=== PATIENT | female | born 1995 | race Caucasian/White ===

== ENCOUNTER 2017-04-03 15:19 | Emergency (ER) | payer OTHER ==
[2017-04-03 15:24] VITALS: RESP 16
--- NOTE | 2017-04-03 16:01 | ED ---
General Adult HPI - General Chief complaint: Vaginal Bleeding Stated complaint: 16 wks preg. Bleeding Time Seen by Provider: 04/03/17 15:52 Source: patient, RN notes reviewed, old records reviewed Mode of arrival: ambulatory Limitations: no limitations - History of Present Illness Initial comments: This is a 21-year-old female ER for evaluation. This patient presents for evaluation of vaginal bleeding and vaginal cramping. Patient is about 16 weeks . Patient is a . Patient's is by dates. Patient denies any other complaints. No nausea vomiting. Bowel or bladder issues. - Related Data Home Medications Medication Instructions Recorded Confirmed Pnv,Calcium 72/Iron/Folic Acid 1 tab PO DAILY 04/03/17 04/03/17 [ Plus Tablet] Allergies Allergy/AdvReac Type Severity Reaction Status Date / Time No Known Allergies Allergy Verified 04/03/17 16:12 Review of Systems ROS Statement: Those systems with pertinent positive or pertinent negative responses have been documented in the HPI. ROS Other: All systems not noted in ROS Statement are negative. Past Medical History Past Medical History: No Reported History History of Any Multi-Drug Resistant Organisms: None Reported Past Surgical History: No Surgical Hx Reported Past Psychological History: No Psychological Hx Reported Smoking Status: Current every day smoker Past Alcohol Use History: None Reported Past Drug Use History: None Reported General Exam Limitations: no limitations General appearance: alert, in no apparent distress Head exam: Present: atraumatic, normocephalic, normal inspection Eye exam: Present: normal appearance, PERRL, EOMI. Absent: scleral icterus, conjunctival injection, periorbital swelling ENT exam: Present: normal exam, mucous membranes moist Neck exam: Present: normal inspection. Absent: tenderness, meningismus, lymphadenopathy Respiratory exam: Present: normal lung sounds bilaterally. Absent: respiratory distress, wheezes, rales, rhonchi, stridor Cardiovascular Exam: Present: regular rate, normal rhythm, normal heart sounds. Absent: systolic murmur, diastolic murmur, rubs, gallop, clicks GI/Abdominal exam: Present: soft, normal bowel sounds. Absent: distended, tenderness, guarding, rebound, rigid Extremities exam: Present: normal inspection, full ROM, normal capillary refill. Absent: tenderness, pedal edema, joint swelling, calf tenderness Back exam: Present: normal inspection Neurological exam: Present: alert, oriented X3, CN II-XII intact Psychiatric exam: Present: normal affect, normal mood Skin exam: Present: warm, dry, intact, normal color. Absent: rash Course Vital Signs 04/03/17 04/03/17 15:22 17:44 Temperature 97.5 F L 98.9 F Pulse Rate 86 72 Respiratory 16 16 Rate Blood Pressure 121/72 119/61 O2 Sat by Pulse 98 98 Oximetry Medical Decision Making - Medical Decision Making 21 female here for evaluation of vaginal bleeding,., Patient negative ultrasound negative patient can be discharged - Lab Data Lab Results 04/03/17 04/03/17 04/03/17 Range/Units 16:20 16:20 16:20 Urine Color Yellow Urine Appearance Clear (Clear) Urine pH 5.5 (5.0-8.0) Ur Specific [place] 1.014 (1.001-1.035) Urine Protein Trace H (Negative) Urine Glucose (UA) Negative (Negative) Urine Ketones Negative (Negative) Urine Blood Large H (Negative) Urine Nitrite Negative (Negative) Urine Bilirubin Negative (Negative) Urine Urobilinogen <2.0 (<2.0) mg/dL Ur Leukocyte Esterase Trace H (Negative) Urine RBC >182 H (0-5) /hpf Urine WBC 50 H (0-5) /hpf Ur Squamous Epith Cells 1 (0-4) /hpf Urine Mucus Rare H (None) /hpf Urine HCG, Qual Not Detected (Not Detectd) Blood Type A Positive Blood Type Recheck No - Radiology Data Radiology results: report reviewed (Ultrasound is negative for acute disease), image reviewed Disposition Clinical Impression: Menorrhagia, Vaginal bleeding Disposition: HOME SELF-CARE Condition: Good Instructions: Menstruation (ED) Referrals: None,Stated [Primary Care Provider] - 1-2 days
[2017-04-03 16:39] LABS: Appearance,Urine Clear (Clear); Bilirubin,Urine Negative (Negative); Glucose,Urine (UA) Negative (Negative); Ketones,Urine Negative (Negative); Leukocyte Esterase,Urine Trace (Negative); Mucus,Urine Rare /hpf; Nitrite,Urine Negative (Negative); PH, Urine 5.5 (5.0-8.0); Particle Count 4358; Protein,Urine Trace (Negative); RBC,Urine >182 /hpf (0-5); Specific Gravity,Urine 1.014 (1.001-1.035); Squamous Epithelial Cell,Urine 1 /hpf (0-4); UA Billing (MACRO vs. MICRO) MICRO; Urobilinogen,Urine <2.0 mg/dL (<2.0); WBC,Urine 50 /hpf (0-5)
--- NOTE | 2017-04-03 17:21 | US ---
EXAMINATION TYPE: US OB <=14 wks transvag DATE OF EXAM: 04/03/2017 COMPARISON: NONE CLINICAL HISTORY: pain. Bleeding and cramping x 2 days EXAM PERFORMED: Transvaginal (TV) and Transabdominal (TA) EXAM MEASUREMENTS: GESTATIONAL AGE / DATING Physician Established: Not established yet Dates by LMP: Unknown Dates by First Scan: This is 1st scan Dates by Current Scan for: No IUP seen at this time MATERNAL ANATOMY Uterus: 7.5 x 4.4 x 4.7cm, anteverted Right Ovary: 2.9 x 1.8 x 2.3cm Left Ovary: 2.7 x 1.7 x 2.7cm, 1.1cm cystic area Post CDS / Adnexa: small amount of free fluid seen in right adnexa and posterior cul de sac Presence of free fluid: yes Presence of corpus luteal cyst: not seen at this time Presence of subchorionic bleed: no GESTATION / SURVEY IUP: No IUP seen at this time Date of LMP: Unknown Beta HcG (if available): Not available at this time NO IUP seen at this time IMPRESSION: No evidence of a gestational sac. Minimal free fluid. Small left ovarian cyst. Normal uterus and endo metrium.
[2017-04-03 17:45] VITALS: BP 119/61; PULSE 72; TEMP 98.9
== END 2017-04-03 18:13 | disposition home or self-care (01) ==
LOC: EC 15:19
DX: N92.0 Excessive and frequent menstruation with regular cycle (principal); F17.200 Nicotine dependence, unspecified, uncomplicated; Z79.899 Other long term (current) drug therapy
CPT/HCPCS: 76801; 76817; 81001; 81025; 86900; 86901; 87086; 87491; 87591; 99284

== ENCOUNTER 2017-05-10 14:57 | Emergency (ER) | payer SELFPAY ==
[2017-05-10 15:42] LABS: Basophils % (A) 0 %; CH 30.8; CHCM 33.7; Eosinophils # (A) 0.1 k/uL (0-0.7); Eosinophils % (A) 1 %; HDW 2.14; HGB 12.4 gm/dL (11.4-16.0); Luc # (Auto) 0.11; Luc % (Auto) 1; Lymphocytes % (A) 25 %; MCH 30.8 pg (25.0-35.0); MCHC 33.6 g/dL (31.0-37.0); MCV 91.7 fL (80.0-100.0); Mean Platelet Volume 9.6; Monocytes # (A) 0.5 k/uL (0-1.0); Monocytes % (A) 6 %; Neutrophils # (A) 5.4 k/uL (1.3-7.7); Neutrophils % (A) 67 %; RBC 4.03 m/uL (3.80-5.40); RDW 13.9 % (11.5-15.5); WBC (Perox) 8.22
[2017-05-10 16:00] LABS: HCG,Qualitative Serum Detected
[2017-05-10 16:07] LABS: Anion Gap 12 mmol/L; Blood Urea Nitrogen 13 mg/dL (7-17); Calcium 9.6 mg/dL (8.4-10.2); Carbon Dioxide 22 mmol/L (22-30); Chloride 107 mmol/L (98-107); Glucose 89 mg/dL (74-99); Non-African American GFR(MDRD) >60 (>60 ml/min/1.73 sqM); Potassium 3.9 mmol/L (3.5-5.1); Sodium 141 mmol/L (137-145)
--- NOTE | 2017-05-10 16:22 | ED ---
General Adult HPI - General Chief complaint: Vaginal Bleeding Stated complaint: vaginal bleeding/cramping-6wks preg Time Seen by Provider: 05/10/17 15:02 Source: patient Mode of arrival: ambulatory Limitations: no limitations - History of Present Illness Initial comments: Patient is a female who presents to the ED via private vehicle for evaluation of dark vaginal spotting and cramping. Patient states that she cannot she was in March however she had a miscarriage on April 03. She states she was evaluated by her OB who stated that she had had a completed miscarriage and required no further follow-up. Patient states that she did not have a menstrual cycle in early May and on Sunday she took a test which was positive. She states that today she was at work where she is on her feet all day she began experiencing suprapubic cramping upon using the restroom she noted some dark vaginal spotting. Patient states she did not have any vaginal bleeding and her first and only had bleeding during her miscarriage in her previous which made her very concerned. Patient denies any fevers, chills, vomiting. She does report that she is been persistently nauseated but this is typical with her previous pregnancies. Reports she's been making sure to eat and drink plenty despite the nausea. Eyes any chest pain or shortness of breath. Patient denies any vaginal discharge or concern for sexually transmitted infections. She states that last month when she was evaluated by gynecology she was tested for all sexually transmitted infections and was negative, dietitian she states that she is in a monogamous relationship and has no concern for exposures. Patient is unsure what her blood type is, but does not believe she received Rhogam in previous pregnancies or miscarriages. Patient denies any dysuria, urinary frequency, foul odor of urine or hematuria. - Related Data Home Medications Medication Instructions Recorded Confirmed Pnv,Calcium 72/Iron/Folic Acid 1 tab PO DAILY 04/03/17 05/10/17 [ Plus Tablet] Allergies Allergy/AdvReac Type Severity Reaction Status Date / Time No Known Allergies Allergy Verified 05/10/17 15:42 Review of Systems ROS Statement: Those systems with pertinent positive or pertinent negative responses have been documented in the HPI. ROS Other: All systems not noted in ROS Statement are negative. Constitutional: Denies: fever, chills Eyes: Denies: vision change Respiratory: Denies: cough, dyspnea Cardiovascular: Denies: chest pain, palpitations Endocrine: Denies: fatigue Gastrointestinal: Reports: nausea. Denies: abdominal pain, vomiting, diarrhea, constipation Genitourinary: Reports: abnormal menses. Denies: urgency, dysuria, frequency, hematuria, dyspareunia (Last sexually active last week) Musculoskeletal: Denies: back pain Skin: Denies: rash, lesions Neurological: Denies: headache, weakness, numbness, paresthesias Psychiatric: Reports: anxiety (Appropriate anxiety considering recent miscarriage). Denies: depression Hematological/Lymphatic: Denies: easy bleeding, easy bruising Past Medical History Past Medical History: No Reported History History of Any Multi-Drug Resistant Organisms: None Reported Past Surgical History: No Surgical Hx Reported Past Psychological History: No Psychological Hx Reported Smoking Status: Current every day smoker Past Alcohol Use History: None Reported Past Drug Use History: None Reported General Exam Limitations: no limitations General appearance: alert, in no apparent distress Head exam: Present: atraumatic, normocephalic, normal inspection Eye exam: Present: normal appearance, PERRL, EOMI. Absent: scleral icterus, conjunctival injection, periorbital swelling ENT exam: Present: normal exam Neck exam: Present: normal inspection Respiratory exam: Present: normal lung sounds bilaterally. Absent: respiratory distress Cardiovascular Exam: Present: regular rate, normal rhythm GI/Abdominal exam: Present: soft. Absent: distended, tenderness, guarding Rectal exam: Present: deferred External exam: Present: normal external exam Speculum exam: Present: normal speculum exam, vaginal discharge (Appears physiologic) By manual exam: Present: normal by manual exam. Absent: cervical motion tenderness, adnexal tenderness, adnexal mass Extremities exam: Present: normal inspection, full ROM, normal capillary refill. Absent: tenderness, pedal edema, joint swelling, calf tenderness Back exam: Present: normal inspection Neurological exam: Present: alert, oriented X3, CN II-XII intact Psychiatric exam: Present: normal affect, normal mood Skin exam: Present: warm, dry, intact, normal color. Absent: rash Course Vital Signs 05/10/17 05/10/17 14:59 16:33 Temperature 100.0 F H Pulse Rate 76 79 Respiratory 17 18 Rate Blood Pressure 118/60 126/76 O2 Sat by Pulse 97 98 Oximetry - Reevaluation(s) Reevaluation #1: Patients results were discussed with the patient, BHCG level consistent with 3- 6wks, US with no definitive findings. 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 All questions pertaining to care were answered to the best of my ability. Patient was given instructions for follow up and indications for return to the ED. Patient expressed understanding and agreement with plan for discharge home with close OB follow up. - Lab Data Result diagrams: 05/10/17 15:28 05/10/17 15:28 Lab Results 05/10/17 05/10/17 05/10/17 Range/Units 15:28 15:28 15:28 WBC 8.0 (3.8-10.6) k/uL RBC 4.03 (3.80-5.40) m/uL Hgb 12.4 (11.4-16.0) gm/dL Hct 37.0 (34.0-46.0) % MCV 91.7 (80.0-100.0) fL MCH 30.8 (25.0-35.0) pg MCHC 33.6 (31.0-37.0) g/dL RDW 13.9 (11.5-15.5) % Plt Count 148 L (150-450) k/uL Neutrophils % 67 % Lymphocytes % 25 % Monocytes % 6 % Eosinophils % 1 % Basophils % 0 % Neutrophils # 5.4 (1.3-7.7) k/uL Lymphocytes # 2.0 (1.0-4.8) k/uL Monocytes # 0.5 (0-1.0) k/uL Eosinophils # 0.1 (0-0.7) k/uL Basophils # 0.0 (0-0.2) k/uL Sodium 141 (137-145) mmol/L Potassium 3.9 (3.5-5.1) mmol/L Chloride 107 (98-107) mmol/L Carbon Dioxide 22 (22-30) mmol/L Anion Gap 12 mmol/L BUN 13 (7-17) mg/dL Creatinine 0.70 (0.52-1.04) mg/dL Est GFR (MDRD) Af Amer >60 (>60 ml/min/1.73 sqM) Est GFR (MDRD) Non-Af >60 (>60 ml/min/1.73 sqM) Glucose 89 (74-99) mg/dL Calcium 9.6 (8.4-10.2) mg/dL HCG, Qual Detected HCG, Quant 3981.4 mIU/mL Urine Color Urine Appearance (Clear) Urine pH (5.0-8.0) Ur Specific [place] (1.001-1.035) Urine Protein (Negative) Urine Glucose (UA) (Negative) Urine Ketones (Negative) Urine Blood (Negative) Urine Nitrite (Negative) Urine Bilirubin (Negative) Urine Urobilinogen (<2.0) mg/dL Ur Leukocyte Esterase (Negative) 05/10/17 Range/Units 17:00 WBC (3.8-10.6) k/uL RBC (3.80-5.40) m/uL Hgb (11.4-16.0) gm/dL Hct (34.0-46.0) % MCV (80.0-100.0) fL MCH (25.0-35.0) pg MCHC (31.0-37.0) g/dL RDW (11.5-15.5) % Plt Count (150-450) k/uL Neutrophils % % Lymphocytes % % Monocytes % % Eosinophils % % Basophils % % Neutrophils # (1.3-7.7) k/uL Lymphocytes # (1.0-4.8) k/uL Monocytes # (0-1.0) k/uL Eosinophils # (0-0.7) k/uL Basophils # (0-0.2) k/uL Sodium (137-145) mmol/L Potassium (3.5-5.1) mmol/L Chloride (98-107) mmol/L Carbon Dioxide (22-30) mmol/L Anion Gap mmol/L BUN (7-17) mg/dL Creatinine (0.52-1.04) mg/dL Est GFR (MDRD) Af Amer (>60 ml/min/1.73 sqM) Est GFR (MDRD) Non-Af (>60 ml/min/1.73 sqM) Glucose (74-99) mg/dL Calcium (8.4-10.2) mg/dL HCG, Qual HCG, Quant mIU/mL Urine Color Yellow Urine Appearance Clear (Clear) Urine pH 6.0 (5.0-8.0) Ur Specific [place] 1.025 (1.001-1.035) Urine Protein Trace H (Negative) Urine Glucose (UA) Negative (Negative) Urine Ketones Negative (Negative) Urine Blood Negative (Negative) Urine Nitrite Negative (Negative) Urine Bilirubin Negative (Negative) Urine Urobilinogen <2.0 (<2.0) mg/dL Ur Leukocyte Esterase Negative (Negative) Disposition Clinical Impression: Vaginal bleeding Disposition: HOME SELF-CARE Instructions: Threatened Miscarriage (ED) Referrals: None,Stated [Primary Care Provider] - 1-2 days Cindy Mcmullen DO [Doctor of Osteopathic Medicine] - 1-2 days Decision Time: 18:13
[2017-05-10 16:36] VITALS: RESP 18
--- NOTE | 2017-05-10 17:27 | US ---
EXAMINATION TYPE: US OB <=14 wks transvag DATE OF EXAM: 05/10/2017 COMPARISON: NONE CLINICAL HISTORY: Pain, vaginal bleeding. Spotting, cramping EXAM PERFORMED: Transvaginal (TV) and Transabdominal (TA) EXAM MEASUREMENTS: GESTATIONAL AGE / DATING Physician Established: not established Dates by LMP: unknown Dates by First Scan: no evidence of IUP seen Dates by Current Scan for: no evidence of embryonic pole MATERNAL ANATOMY Uterus: 9.2 x 5.3 x 6.0cm Right Ovary: 3.6 x 1.9 x 3.1cm Left Ovary: 2.5 x 1.7 x 1.8cm Post CDS / Adnexa: free fluid within posterior cul-de-sac Presence of free fluid: yes Presence of corpus luteal cyst: Yes, in the right ovary measuring 2.0 cm diameter GESTATION / SURVEY MSD: 0.7cm out of range Yolk Sac (normal less than 6mm): not seen No embryonic pole identified at this time Date of LMP: unknown Beta HcG (if available): unavailable IMPRESSION: 1. Candidate for gestational sac noted within the fundal endometrium, measuring too small to date. No evidence of embryonic pole or yolk sac at this time. 2. Possible corpus luteum right ovary. 3. Free fcul-de-sac fluid.
[2017-05-10 18:06] LABS: Appearance,Urine Clear (Clear); Bilirubin,Urine Negative (Negative); Glucose,Urine (UA) Negative (Negative); Ketones,Urine Negative (Negative); Leukocyte Esterase,Urine Negative (Negative); Nitrite,Urine Negative (Negative); Protein,Urine Trace (Negative); Specific Gravity,Urine 1.025 (1.001-1.035); UA Billing (MACRO vs. MICRO) CHEM; Urobilinogen,Urine <2.0 mg/dL (<2.0)
[2017-05-10 18:32] VITALS: BP 134/58; PULSE 74; TEMP 97.9
== END 2017-05-10 18:29 | disposition home or self-care (01) ==
LOC: EC 14:57
DX: O20.9 Hemorrhage in early pregnancy, unspecified (principal); O99.331 Smoking (tobacco) complicating pregnancy, first trimester; F17.200 Nicotine dependence, unspecified, uncomplicated; Z79.899 Other long term (current) drug therapy; Z3A.01 Less than 8 weeks gestation of pregnancy
CPT/HCPCS: 36415; 76801; 76817; 80048; 81003; 84702; 84703; 85025; 87086; 99284

== ENCOUNTER → 2017-06-08 | Outpatient (CLI) | payer OTHER ==
[2017-06-08 13:26] LABS: CH 31.4; CHCM 34.8; HCT 39.1 % (34.0-46.0); HDW 2.12; HGB 13.4 gm/dL (11.4-16.0); MCH 30.9 pg (25.0-35.0); MCHC 34.2 g/dL (31.0-37.0); MCV 90.5 fL (80.0-100.0); Mean Platelet Volume 9.4; RBC 4.32 m/uL (3.80-5.40); RDW 14.2 % (11.5-15.5); WBC 7.1 k/uL (3.8-10.6)
[2017-06-08 13:53] LABS: Glucose 89 mg/dL (74-99); Non-African American GFR(MDRD) >60 (>60 ml/min/1.73 sqM)
[2017-06-08 14:05] LABS: Hemoglobin A1C 5.6 % (4.2-6.1)
[2017-06-08 14:21] LABS: Hepatitis B Surface Ag Index 0.06
--- NOTE | 2017-06-08 14:42 | US ---
EXAMINATION TYPE: US OB <= 14 wk fetus DATE OF EXAM: 06/08/2017 COMPARISON: US May 10, 2017 CLINICAL HISTORY: Z36 Visability Dates. Confirm Dates EXAM PERFORMED: Transabdominal (TA) EXAM MEASUREMENTS: GESTATIONAL AGE / DATING Physician Established: Not yet established Dates by LMP: (9 weeks/3 days) EDC: 01/08/2018 Dates by First Scan: Too early to calculate Dates by Current Scan for: (9 weeks/4 days) EDC: 01/07/2018 MATERNAL ANATOMY Uterus: 11.4 x 6.3 x 7.7 cm Right Ovary: 3.7 x 2.5 x 2.6 cm Left Ovary: 2.0 x 1.7 x 2.2 cm Post CDS / Adnexa: wnl Presence of free fluid: No Presence of corpus luteal cyst: Right Ovary= 2.1 x 1.7 x 1.4 cm Presence of subchorionic bleed: No GESTATION / SURVEY CRL: 2.8 cm (9 weeks/4 days) MSD: wnl Yolk Sac (normal less than 6mm): 4mm Heart Rate: 170 bpm Rhythm: Normal IUP: Viable IUP Date of LMP: 04/03/2017 Single live intrauterine gestation is confirmed as gestational sac, yolk sac, and pole are no w present. No free fluid is seen in pelvic cul-de-sac. Both ovaries are identified. Within right ovary there is 2.1 cm peripheral hypervascular slightly hyp oechoic lesion felt to reflect corpus luteal cyst redemonstrated. No suspicious extraovarian adnexal masses are noted. IMPRESSION: Single live intrauterine gestation is now confirmed, mean crown-rump length is 2.8 cm corresponding t o 9 week 4 day old fetus.
[2017-06-08 19:21] LABS: Treponemal Ab Non-Reactive (Non-Reactive)
== END | disposition home or self-care (01) ==
LOC: RADUSWWP 12:51
PROVIDERS: ATTEND Obstetrics & Gynecology
DX: Z36 Encounter for antenatal screening of mother (principal); O26.811 Pregnancy related exhaustion and fatigue, first trimester; Z3A.09 9 weeks gestation of pregnancy
CPT/HCPCS: 36415; 76801; 82565; 82947; 83036; 84443; 85027; 86762; 86780; 86850; 86900; 86901; 87340; 87390

== ENCOUNTER 2017-09-26 16:44 | Outpatient (CLI) | payer OTHER ==
[2017-09-26 17:20] VITALS: BP 123/62; PULSE 105; RESP 20; TEMP 97.2
--- NOTE | 2017-10-07 03:13 | P.MSEPDOC ---
Presenting Problems - Arrival Data Date of Arrival on Unit: 09/26/17 Time of Arrival on Unit: 16:44 Mode of Transport: Ambulatory - Complaint OB-Reason for Admission/Chief Complaint: Possible Onset of Labor Medical History - Information : 3 Para: 1 Term: 1 Abortions: Spontaneous or Elective: 1 Number of Living Children: 1 - Gestational Age Gestational Age by RICHELLE (wks/days): 25 Weeks and 2 Days Review of Systems - Review of Systems Constitutional: No problems Breast: No problems ENT: No problems Cardiovascular: No problems Respiratory: No problems Gastrointestinal: No problems Genitourinary: No problems Musculoskeletal: No problems Neurological: No problems Skin: No problems Vital Signs - Temperature Temperature: 97.2 F Temperature Source: Oral - Pulse Right Brachial Pulse Rate: 105 Pulse Assessment Method: Automatic Cuff - Respirations Respiratory Rate: 20 Oxygen Delivery Method: Room Air O2 Sat by Pulse Oximetry: 97 - Blood Pressure Right Arm Supine Blood Pressure: 123/62 Blood Pressure Mean: 82 Blood Pressure Source: Automatic Cuff Medical Screen Scoring (Pre) - Cervical Exam Dilation: 0 cm = 0 - Uterine Contractions Frequency: N/A - Maternal Vital Signs Maternal Temperature: N/A Maternal Blood Pressure: N/A Signs of Preeclampsia: N/A Maternal Respirations: N/A - Pain Assessment Pain Location and Character: Abdomen Pain Scale Used: Numeric (1 - 10) Pain Intensity: 6 Pain Description: *Acute Pain Frequency: Intermittent Pain Behavior: Vocalization Pain Aggravating Factors: Contractions Non-Pharmacological Interventions: Darkened Room, Distraction, Relaxation Technique - Assessment Heart Rate - NICHD Category: Category I (Normal) = 0 - Total Score Total Score (Pre): 0 - Level of Risk Level of Risk: Low (0-5) Physician Notification (Pre) - Physician Notified Physician Notified Date: 09/26/17 Physician Notified Time: 17:59 Physician/Practitioner Notifed:: dr vee Spoke With: dr vee - Notification Comment Comment: orders to discharge home Disposition - Disposition OB Disposition: Discharge to home, Written follow up instructions reviewed Discharge Date: 09/26/17 Discharge Time: 18:00 I agree with the RN Medical Screening Exam: Yes Risk & Benefit of care provided described in d/c instruction: Yes Diagnosis: ACUTE GASTRITIS WITHOUT BLEEDING
== END 2017-09-26 18:00 | disposition home or self-care (01) ==
LOC: FBPOP 16:44
PROVIDERS: ATTEND Obstetrics & Gynecology
DX: O99.619 Diseases of the digestive system complicating pregnancy, unspecified trimester (principal); K29.00 Acute gastritis without bleeding; Z3A.25 25 weeks gestation of pregnancy
CPT/HCPCS: 99213

== ENCOUNTER → 2017-10-15 | Outpatient (CLI) | payer OTHER ==
[2017-10-15 14:27] LABS: HCT 33.5 % (34.0-46.0); HGB 10.6 gm/dL (11.4-16.0); MCH 30.2 pg (25.0-35.0); MCHC 31.6 g/dL (31.0-37.0); MCV 95.6 fL (80.0-100.0); Mean Platelet Volume 8.8; Platelet Count 192 k/uL (150-450); RDW 14.1 % (11.5-15.5)
== END | disposition home or self-care (01) ==
LOC: LABWHC1 12:57
PROVIDERS: ATTEND Obstetrics & Gynecology
DX: Z34.82 Encounter for supervision of other normal pregnancy, second trimester (principal)
CPT/HCPCS: 36415; 82950; 85027

== ENCOUNTER 2017-11-09 01:35 | Outpatient (CLI) | payer OTHER ==
[2017-11-09 03:16] LABS: Appearance,Urine Clear (Clear); Bacteria,Urine Occasional /hpf; Bilirubin,Urine Negative (Negative); Blood,Urine Negative (Negative); Color,Urine Yellow; Glucose,Urine (UA) Negative (Negative); Ketones,Urine Negative (Negative); Leukocyte Esterase,Urine Small (Negative); Mucus,Urine Rare /hpf; Nitrite,Urine Negative (Negative); Protein,Urine Negative (Negative); RBC,Urine 1 /hpf (0-5); Specific Gravity,Urine 1.009 (1.001-1.035); Squamous Epithelial Cell,Urine 1 /hpf (0-4); Urobilinogen,Urine <2.0 mg/dL (<2.0); WBC,Urine 2 /hpf (0-5)
[2017-11-09 04:05] VITALS: BP 125/69; PULSE 112; RESP 16; TEMP 98.2
--- NOTE | 2017-11-09 04:14 | P.MSEPDOC ---
Presenting Problems - Arrival Data Date of Arrival on Unit: 11/09/17 Time of Arrival on Unit: 01:41 Mode of Transport: Wheelchair - Complaint OB-Reason for Admission/Chief Complaint: Rule Out PROM Medical History - Information : 3 Para: 1 Term: 1 : 0 Abortions: Spontaneous or Elective: 1 Number of Living Children: 1 - Gestational Age Gestational Age by RICHELLE (wks/days): 31 Weeks and 4 Days - History Complications: Smoker Review of Systems - Review of Systems Constitutional: No problems Breast: No problems ENT: No problems Cardiovascular: No problems Respiratory: No problems Gastrointestinal: No problems Genitourinary: No problems Musculoskeletal: No problems Neurological: No problems Skin: No problems Vital Signs - Temperature Temperature: 98.2 F Temperature Source: Temporal Artery Scan - Pulse Right Sitting Brachial Pulse Rate: 112 Pulse Assessment Method: Automatic Cuff - Respirations Respiratory Rate: 16 Oxygen Delivery Method: Room Air O2 Sat by Pulse Oximetry: 98 - Blood Pressure Right Arm Supine Blood Pressure: 125/69 Blood Pressure Mean: 87 Blood Pressure Source: Automatic Cuff Medical Screen Scoring (Pre) - Cervical Exam Dilation: 0 cm = 0 Membranes: Intact - Uterine Contractions Frequency: < 36 weeks = 6 - Pain Assessment Pain Scale Used: Numeric (1 - 10) Pain Intensity: 0 Pain Behavior: None Exhibited - Maternal Trauma Maternal Trauma: N/A - Assessment Baseline FHR: 120 Heart Rate - NICHD Category: Category I (Normal) = 0 NST: Reactive Position: N/A Station: N/A - Total Score Total Score (Pre): 6 - Level of Risk Level of Risk: Medium (6-9) Physician Notification (Pre) - Physician Notified Physician Notified Date: 11/09/17 Physician Notified Time: 02:20 Physician/Practitioner Notifed:: Dr Mcmullen Spoke With: Dr Mcmullen New Order Received: Yes - Notification Comment Comment: Waiting on UA results, UA WNL discharge to home Disposition - Disposition OB Disposition: Triage Discharge Date: 11/09/17 Discharge Time: 03:30 I agree with the RN Medical Screening Exam: Yes Risk & Benefit of care provided described in d/c instruction: Yes Diagnosis: FALSE LABOR BEFORE 37 COMPLETED WEEKS OF GEST, THIRD TRI
== END 2017-11-09 03:30 | disposition home or self-care (01) ==
LOC: FBPOP 01:35
PROVIDERS: ATTEND Obstetrics & Gynecology
DX: O47.03 False labor before 37 completed weeks of gestation, third trimester (principal); Z3A.31 31 weeks gestation of pregnancy
CPT/HCPCS: 59025; 81001; G0463; 99213

== ENCOUNTER 2017-12-03 23:50 | Outpatient (CLI) | payer OTHER ==
[2017-12-04 01:39] VITALS: BP 142/75; PULSE 103; RESP 16; TEMP 96.9
--- NOTE | 2017-12-04 08:12 | P.MSEPDOC ---
Presenting Problems - Arrival Data Date of Arrival on Unit: 12/03/17 Time of Arrival on Unit: 23:50 Mode of Transport: Wheelchair - Complaint OB-Reason for Admission/Chief Complaint: Possible Onset of Labor Medical History - Information : 3 Para: 1 Term: 1 : 0 Abortions: Spontaneous or Elective: 1 Number of Living Children: 1 - Gestational Age Gestational Age by RICHELLE (wks/days): 35 Weeks and 1 Days Review of Systems - Review of Systems Constitutional: No problems Breast: No problems ENT: No problems Cardiovascular: No problems Respiratory: No problems Gastrointestinal: No problems Genitourinary: No problems Musculoskeletal: No problems Neurological: No problems Skin: No problems Vital Signs - Temperature Temperature: 96.9 F Temperature Source: Temporal Artery Scan - Pulse Right Sitting Brachial Pulse Rate: 103 Pulse Assessment Method: Automatic Cuff - Respirations Respiratory Rate: 16 Oxygen Delivery Method: Room Air O2 Sat by Pulse Oximetry: 99 - Blood Pressure Right Arm Sitting Blood Pressure: 142/75 Blood Pressure Mean: 97 Blood Pressure Source: Automatic Cuff Medical Screen Scoring (Pre) - Cervical Exam Dilation: 0 cm = 0 Effacement: Exam Deferred Membranes: Intact - Uterine Contractions Frequency: < 36 weeks = 6 Duration: > 40 seconds = 2 Intensity: N/A - Maternal Vital Signs Maternal Temperature: N/A Maternal Blood Pressure: N/A Signs of Preeclampsia: N/A Maternal Respirations: N/A - Pain Assessment Pain Intensity: 8 Pain Description: Cramping Pain Radiation Location: back Pain Frequency: Intermittent Pain Duration: 4 Pain Duration Units: Hours Pain Behavior: Vocalization Pain Aggravating Factors: Contractions Non-Pharmacological Interventions: Darkened Room - Maternal Trauma Maternal Trauma: N/A - Assessment Baseline FHR: 120 Heart Rate - NICHD Category: Category I (Normal) = 0 NST: Reactive Position: N/A Station: N/A - Total Score Total Score (Pre): 8 - Level of Risk Level of Risk: Medium (6-9) Physician Notification (Pre) - Physician Notified Physician Notified Date: 12/04/17 Physician Notified Time: 01:15 Physician/Practitioner Notifed:: Dr Stuart Cid Order Received: Yes Disposition - Disposition OB Disposition: Discharge to home, Written follow up instructions reviewed Discharge Date: 12/04/17 Discharge Time: 01:17 I agree with the RN Medical Screening Exam: Yes Risk & Benefit of care provided described in d/c instruction: Yes Diagnosis: FALSE LABOR BEFORE 37 COMPLETED WEEKS OF GEST, THIRD TRI
== END 2017-12-04 01:17 | disposition home or self-care (01) ==
LOC: FBPOP 23:50
PROVIDERS: ATTEND Obstetrics & Gynecology
DX: O47.03 False labor before 37 completed weeks of gestation, third trimester (principal); Z3A.35 35 weeks gestation of pregnancy
CPT/HCPCS: 59025; G0463; 99213

== ENCOUNTER 2017-12-31 14:50 | Outpatient (CLI) | payer OTHER ==
[2017-12-31 16:23] VITALS: BP 133/76; PULSE 88; RESP 16; TEMP 97.9
--- NOTE | 2017-12-31 20:51 | P.MSEPDOC ---
Presenting Problems - Arrival Data Date of Arrival on Unit: 12/31/17 Time of Arrival on Unit: 14:50 Mode of Transport: Ambulatory - Complaint OB-Reason for Admission/Chief Complaint: Possible Onset of Labor Comment: Contractions since 99 Medical History - Information : 3 Para: 1 Term: 1 : 0 Abortions: Spontaneous or Elective: 1 Number of Living Children: 1 - Gestational Age Gestational Age by RICHELLE (wks/days): 39 Weeks and 0 Days Review of Systems - Review of Systems Constitutional: No problems Breast: No problems ENT: No problems Cardiovascular: No problems Respiratory: No problems Gastrointestinal: No problems Genitourinary: No problems Musculoskeletal: No problems Neurological: No problems Skin: No problems Vital Signs - Temperature Temperature: 97.9 F Temperature Source: Temporal Artery Scan - Pulse Right Sitting Brachial Pulse Rate: 88 Pulse Assessment Method: Automatic Cuff - Respirations Respiratory Rate: 16 Oxygen Delivery Method: Room Air - Blood Pressure Right Arm Sitting Blood Pressure: 133/76 Blood Pressure Mean: 95 Blood Pressure Source: Automatic Cuff Medical Screen Scoring (Pre) - Cervical Exam Dilation: 1-3 cm = 1 Effacement: More than 50% = 2 Membranes: Intact - Uterine Contractions Frequency: > 5 minutes apart = 1 Duration: N/A Intensity: N/A - Maternal Vital Signs Maternal Temperature: N/A Maternal Blood Pressure: N/A Signs of Preeclampsia: N/A Maternal Respirations: N/A - Maternal Trauma Maternal Trauma: N/A - Assessment Baseline FHR: 135 Heart Rate - NICHD Category: Category I (Normal) = 0 NST: Reactive Position: N/A Station: N/A - Total Score Total Score (Pre): 4 - Level of Risk Level of Risk: Low (0-5) Physician Notification (Pre) - Physician Notified Physician Notified Date: 12/31/17 Physician Notified Time: 16:00 Physician/Practitioner Notifed:: Edilberto Spoke With: Edilberto New Order Received: Yes - Notification Comment Comment: Advsd Dr Casanova, pt of Dr. Peterson, c/o contractions and pressure 1.5/ 70/-3, firm and posterior. No change x 1 hr, reactive NST. States to d/c home Disposition - Disposition OB Disposition: Discharge to home, Written follow up instructions reviewed Discharge Date: 04/02/18 Discharge Time: 16:20 I agree with the RN Medical Screening Exam: Yes Risk & Benefit of care provided described in d/c instruction: Yes Diagnosis: FALSE LABOR AT OR AFTER 37 COMPLETED WEEKS OF GESTATION
== END 2017-12-31 16:20 | disposition home or self-care (01) ==
LOC: FBPOP 14:50
PROVIDERS: ATTEND Obstetrics & Gynecology
DX: O47.1 False labor at or after 37 completed weeks of gestation (principal); Z3A.39 39 weeks gestation of pregnancy
CPT/HCPCS: 59025; G0463; 99213

== ENCOUNTER 2018-01-01 14:39 | Outpatient (CLI) | payer OTHER ==
[2018-01-01 16:07] VITALS: BP 139/61; PULSE 88; RESP 18; TEMP 97.5
--- NOTE | 2018-02-13 08:54 | P.MSEPDOC ---
Presenting Problems - Arrival Data Date of Arrival on Unit: 01/01/18 Time of Arrival on Unit: 14:39 Mode of Transport: Ambulatory Medical History - Information : 3 Para: 1 Term: 1 : 0 Abortions: Spontaneous or Elective: 1 Number of Living Children: 1 - Gestational Age Gestational Age by RICHELLE (wks/days): 39 Weeks and 1 Days Vital Signs - Temperature Temperature: 97.5 F Temperature Source: Temporal Artery Scan - Pulse Right Pulse Oximetery Pulse Rate: 88 Pulse Assessment Method: Pulse Oximetry - Respirations Respiratory Rate: 18 Oxygen Delivery Method: Room Air O2 Sat by Pulse Oximetry: 98 - Blood Pressure Right Arm Blood Pressure: 139/61 Blood Pressure Mean: 87 Blood Pressure Source: Automatic Cuff Medical Screen Scoring (Post) - Cervical Exam Dilation: 1-3 cm = 1 Membranes: Intact - Uterine Contractions Frequency: > 5 minutes apart = 1 Duration: > 40 seconds = 2 Intensity: N/A - Maternal Vital Signs Maternal Temperature: N/A Maternal Blood Pressure: N/A Signs of Preeclampsia: N/A Maternal Respirations: N/A - Pain Assessment Pain Location and Character: Abdomen Pain Scale Used: Numeric (1 - 10) Pain Intensity: 9 Pain Management Goal: 2 Pain Description: *Acute, Cramping Pain Radiation Location: lower back Pain Frequency: Intermittent Pain Duration: 1 Pain Duration Units: Days Pain Behavior: Vocalization Effects of Pain: none Pain Aggravating Factors: None Non-Pharmacological Interventions: Position/Reposition, Relaxation Technique - Maternal Trauma Maternal Trauma: N/A - Assessment Heart Rate: 125 Heart Rate - NICHD Category: Category I (Normal) = 0 NST: Reactive Position: N/A - Total Score Total Score (Post): 4 - Post Treatment Level of Risk Post Treatment Level of Risk: Low (0-5) Physician Notification (Post) - Physician Notified Physician Notified Date: 01/01/18 Physician Notified Time: 15:57 Physician/Practitioner Notified:: Dr Mcmullen Spoke With: Telephone New Order Received: Yes - Notification Comment Comment: Pt here for contractions that she states are every 10 minutes and for rule out ROM, no cervical change after 1 hour, Discharge patient with instructions to return when contractions become closer together and stronger. Disposition - Disposition OB Disposition: Discharge to home Discharge Date: 01/01/18 Discharge Time: 16:00 I agree with the RN Medical Screening Exam: Yes Risk & Benefit of care provided described in d/c instruction: Yes Diagnosis: FALSE LABOR AT OR AFTER 37 COMPLETED WEEKS OF GESTATION
== END 2018-01-01 16:00 | disposition home or self-care (01) ==
LOC: FBPOP 14:39
PROVIDERS: ATTEND Obstetrics & Gynecology
DX: O47.1 False labor at or after 37 completed weeks of gestation (principal); Z3A.39 39 weeks gestation of pregnancy
CPT/HCPCS: 59025; 84112; G0463; 99213

== ENCOUNTER 2018-01-07 06:00 | Inpatient (IN) | payer OTHER ==
[2018-01-07] MEDS ORDERED: OXYTOCIN 20 UNITS/1000 ML NS 1,000 ML IV SCH (06:15)
[2018-01-07] MEDS ORDERED: TERBUTALINE 1 MG/ML VIAL SQ PRN (06:15)
[2018-01-07] MEDS ORDERED: LIDOCAINE 1% (PF) 10 MG/ML (30 ML SDV) SQ PRN (06:15)
[2018-01-07] MEDS ORDERED: CARBOPROST TROMETHAMINE 250 MCG/ML 1 ML AMP IM PRN (06:15)
[2018-01-07] MEDS ORDERED: OXYTOCIN 10 UNIT/ML 1 ML VIAL IM PRN (06:15)
[2018-01-07] MEDS ORDERED: METHYLERGONOVINE 0.2 MG/ML 1 ML AMP IM PRN (06:15)
[2018-01-07] MEDS: LACTATED RINGERS 1,000 ML IV SCH ×2 (06:24→08:30)
[2018-01-07 06:33] VITALS: BMI 36.6
[2018-01-07 06:56] LABS: Basophils % (A) 0 %; Eosinophils # (A) 0.1 k/uL (0-0.7); Eosinophils % (A) 1 %; HGB 10.3 gm/dL (11.4-16.0); Lymphocytes # (A) 2.1 k/uL (1.0-4.8); Lymphocytes % (A) 21 %; MCH 28.3 pg (25.0-35.0); MCHC 33.2 g/dL (31.0-37.0); MCV 85.2 fL (80.0-100.0); Mean Platelet Volume 9.2; Monocytes # (A) 0.6 k/uL (0-1.0); Monocytes % (A) 6 %; Neutrophils # (A) 6.9 k/uL (1.3-7.7); Neutrophils % (A) 71 %; Platelet Count 186 k/uL (150-450); RBC 3.64 m/uL (3.80-5.40); RDW 14.2 % (11.5-15.5); WBC 9.8 k/uL (3.8-10.6)
[2018-01-07] MEDS ORDERED: SODIUM CHLORIDE 0.9% 100 ML BAG ONE (08:21)
[2018-01-07] MEDS ORDERED: fentaNYL (PF) 50 MCG/ML 5 ML AMP ONE (08:21)
[2018-01-07] MEDS ORDERED: BUPIVACAINE (PF) 0.25% 30 ML VIAL ONE (08:21)
[2018-01-07] MEDS ORDERED: diphenhydrAMINE 25 MG CAP PO PRN (10:44)
[2018-01-07] MEDS ORDERED: LANOLIN CREAM 5 GM TUBE TOPICAL PRN (10:44)
[2018-01-07] MEDS ORDERED: ZOLPIDEM 5 MG TAB PO PRN (10:44)
[2018-01-07] MEDS ORDERED: diphenhydrAMINE 50 MG/ML 1 ML VIAL IVP PRN ×2 (10:44)
[2018-01-07] MEDS ORDERED: WITCH HAZEL 1 EACH MED..PAD TOPICAL PRN (10:44)
[2018-01-07] MEDS ORDERED: diphenhydrAMINE 50 MG CAP PO PRN (10:44)
[2018-01-07] MEDS ORDERED: BENZOCAINE/MENTHOL SPRAY 1 GM/SPRAY AEROSOL TOPICAL PRN (10:44)
[2018-01-07] MEDS ORDERED: SIMETHICONE 80 MG CHEWABLE PO PRN (10:44)
[2018-01-07] MEDS ORDERED: BUPIVACAINE (PF) 0.25% 25 ML, fentaNYL (PF) 200 MCG in SODIUM CHLORIDE 0.9% 71 ML EPIDURAL ONE (11:36)
--- NOTE | 2018-01-07 13:45 | P.HPOB ---
History of Present Illness H&P Date: 01/07/18 Chief Complaint: Intrauterine at term: Induction of labor Minnie is a 22-year-old at 39 weeks 6 days gestation who arrives for induction of labor. Her course was generally unremarkable and she is feeling well at this time. Pertinent labs did include A+ blood type, Rh antibody was negative, rubella immune, hepatitis B surface antigen as well as RPR and HIV were all negative. She is dilated to 3 cm 70% effaced and -2 station and artificial rupture of membranes was performed and clear fluid is noted. heart tones in the 130s and reactive. The remainder the physical exam is unremarkable with heart being regular, lungs clear, extremities without pain. Gravid uterus is noted. Assessment intrauterine at term. Plan Pitocin augmentation of labor and plans for epidural for analgesia. Past Medical History Past Medical History: No Reported History History of Any Multi-Drug Resistant Organisms: None Reported Past Surgical History: No Surgical Hx Reported Past Anesthesia/Blood Transfusion Reactions: No Reported Reaction Past Psychological History: No Psychological Hx Reported Smoking Status: Current every day smoker Past Alcohol Use History: None Reported Past Drug Use History: None Reported - Past Family History Mother Family Medical History: No Reported History Medications and Allergies Home Medications Medication Instructions Recorded Confirmed Type Pnv,Calcium 72/Iron/Folic Acid 1 tab PO DAILY 04/03/17 01/07/18 History [ Plus Tablet] Allergies Allergy/AdvReac Type Severity Reaction Status Date / Time No Known Allergies Allergy Verified 01/07/18 06:13 Exam Osteopathic Statement: *. No significant issues noted on an osteopathic structural exam other than those noted in the History and Physical/Consult. - Vital Signs Vital signs: Vital Signs Temp Pulse Resp BP Pulse Ox 01/07/18 12:10 98.6 F 97 18 130/71 01/07/18 11:40 97.6 F 84 16 115/58 01/07/18 11:10 72 16 107/63 01/07/18 10:55 80 16 97/58 01/07/18 10:40 76 16 107/55 01/07/18 10:25 85 16 110/55 01/07/18 10:10 98.6 F 83 16 111/65 01/07/18 06:13 97.3 F L 93 18 138/81 98 Intake and Output 01/06/18 01/07/1818 22:59 06:59 14:59 Output Total 150 Balance -150 Output: Estimated Blood Loss 150 Other: Weight 99.79 kg Results Result Diagrams: 01/07/18 06:20 Abnormal Lab Results - Last 24 Hours (Table) 01/07/18 Range/Units 06:20 RBC 3.64 L (3.80-5.40) m/uL Hgb 10.3 L (11.4-16.0) gm/dL Hct 31.0 L (34.0-46.0) %
--- NOTE | 2018-01-07 13:46 | P.PROBDLV ---
Vaginal Delivery Note - . Vaginal Delivery Note: Patient progressed to complete and pushing with spontaneous vaginal delivery of a viable male over a first-degree perineal laceration. Following delivery of the head a nuchal cord 1 was noted and baby was delivered through the nuchal cord. Anterior and posterior shoulders were gently delivered with downward and upward traction followed by the remainder the baby. Mouth and nares were then bulb suctioned and baby was placed on mother's abdomen where the umbilical cord was allowed to pulsate for 30 seconds prior to clamping and cutting. Once this was completed nursery personnel was present to assume care and then placenta was delivered intact. Pitocin was then added to the IV. First repair perineal laceration was repaired in interrupted fashion with 3-0 Vicryl following 1% Xylocaine for analgesia. scores were 9 and 9 at one and 5 minutes respectively and the weight was 9 lbs. 3 oz.
[2018-01-07] MEDS: IBUPROFEN 600 MG TAB PO PRN ×2 (14:52→23:33)
[2018-01-07] MEDS: ACETAMINOPHEN TAB 325 MG TAB PO PRN (19:29)
[2018-01-07] MEDS: SENNOSIDES-DOCUSATE SODIUM 1 EACH TAB PO SCH (20:39)
[2018-01-08] MEDS: ACETAMINOPHEN TAB 325 MG TAB PO PRN (05:20)
--- NOTE | 2018-01-08 08:03 | P.DS ---
Providers Date of admission: 01/07/18 06:04 Expected date of discharge: 01/08/18 Attending physician: Mario Peterson Primary care physician: Stated None Hospital Course: Patient is doing very well day 1. She is ambulating, voiding, and she is tolerating her diet. She voices no complaints. Vital signs are stable and afebrile. Heart regular, lungs clear, extremities without pain. Abdomen is soft uterus is firm lochia is reported to be light. Assessment day 1. Plan discharged home. She will follow up with me in 6 weeks. Prescription for a breast pump and Motrin have been provided. All the questions are answered her and she is stable for discharge this time. Patient Condition at Discharge: Good Plan - Discharge Summary New Discharge Prescriptions: New Ibuprofen [Motrin] 600 mg PO Q6HR PRN #30 tab PRN Reason: Pain No Action Pnv,Calcium 72/Iron/Folic Acid [ Plus Tablet] 1 tab PO DAILY Discharge Medication List Pnv,Calcium 72/Iron/Folic Acid [ Plus Tablet] 1 tab PO DAILY 04/03/17 [ History] Ibuprofen [Motrin] 600 mg PO Q6HR PRN #30 tab 01/08/18 [Rx] Follow up Appointment(s)/Referral(s): Mario Peterson DO [Doctor of Osteopathic Medicine] - 6 Weeks Activity/Diet/Wound Care/Special Instructions: No heavy lifting, limit stairs and driving, and pelvic rest. If any high temperatures, heavy bleeding, or severe pain call my office Discharge Disposition: HOME SELF-CARE
[2018-01-08] MEDS: SENNOSIDES-DOCUSATE SODIUM 1 EACH TAB PO SCH (08:05)
[2018-01-08] MEDS: IBUPROFEN 600 MG TAB PO PRN (11:10)
[2018-01-08 16:23] VITALS: BP 136/64; PULSE 81; RESP 16; TEMP 97.5
== END 2018-01-08 19:30 | disposition home or self-care (01) | DRG 775 ==
LOC: 4FBP 06:04
PROVIDERS: ADMIT Obstetrics & Gynecology; ATTEND Obstetrics & Gynecology
PROC: 10E0XZZ Delivery of Products of Conception, External Approach (ICD-10-PCS; principal; 2018-01-07)
PROC: 0HQ9XZZ Repair Perineum Skin, External Approach (ICD-10-PCS; 2018-01-07)
PROC: 00HU33Z Insertion of Infusion Device into Spinal Canal, Percutaneous Approach (ICD-10-PCS; 2018-01-07)
PROC: 3E0R3NZ Introduction of Analgesics, Hypnotics, Sedatives into Spinal Canal, Percutaneous Approach (ICD-10-PCS; 2018-01-07)
DX: O99.334 Smoking (tobacco) complicating childbirth (principal); F17.200 Nicotine dependence, unspecified, uncomplicated; O70.0 First degree perineal laceration during delivery; O69.81X0 Labor and delivery complicated by cord around neck, without compression, not applicable or unspecified; Z37.0 Single live birth; Z3A.39 39 weeks gestation of pregnancy
CPT/HCPCS: 85025; 88307

== ENCOUNTER 2018-06-19 14:31 | Emergency (ER) | payer OTHER ==
[2018-06-19 16:25] LABS: Appearance,Urine Clear (Clear); Bilirubin,Urine Negative (Negative); Blood,Urine Large (Negative); Color,Urine Yellow; Glucose,Urine (UA) Negative (Negative); Ketones,Urine Negative (Negative); Leukocyte Esterase,Urine Trace (Negative); Mucus,Urine Rare /hpf; Nitrite,Urine Negative (Negative); Protein,Urine Trace (Negative); RBC,Urine 149 /hpf (0-5); Specific Gravity,Urine 1.023 (1.001-1.035); Squamous Epithelial Cell,Urine 2 /hpf (0-4); WBC,Urine 1 /hpf (0-5)
--- NOTE | 2018-06-19 17:15 | US ---
EXAMINATION TYPE: Transabdominal DATE OF EXAM: 01/01/18 COMPARISON: NONE CLINICAL HISTORY: cramping and bleeding EXAM PERFORMED: Transvaginal (TV) and Transabdominal (TA) EXAM MEASUREMENTS: GESTATIONAL AGE / DATING Physician Established: Not yet established Dates by LMP: LMP unknown Dates by First Scan: No previous this is first scan Dates by Current Scan for: Unable to date by today's study MATERNAL ANATOMY Uterus: 8.9 x 4.7 x 4.5cm Right Ovary: 2.1 x 1.4 x 1.3cm Left Ovary: at area of left adnexa there is a 5.3 x 4.9 x 3.9 cm structure, this may or may not be th e left ovary, there is blood flow within Post CDS / Adnexa: CDS appears to have blood in it Presence of free fluid: Presence of corpus luteal cyst: Presence of subchorionic bleed: GESTATION / SURVEY IUP: No IUP seen at this time Date of LMP: unknown Beta HcG (if available): Not available at this time No evidence of torsion. IMPRESSION: There is free fluid in the cul-de-sac. Normal uterus and endometrium. There is mild enlargement of th e left ovary. Follow-up is recommended. There is normal arterial waveform in the left ovarian artery on the color Doppler images.
--- NOTE | 2018-06-19 17:40 | ED ---
Abdominal Pain HPI - General Chief Complaint: Abdominal Pain Stated Complaint: apx 4 weeks preg and bleeding Time Seen by Provider: 06/19/18 15:28 Source: patient, RN notes reviewed, old records reviewed Mode of arrival: ambulatory Limitations: no limitations - History of Present Illness Initial Comments: Patient is a 22-year-old female presents emergency department today with chief complaint of vaginal bleeding today. She reports she wishes 4 weeks . She states she's been having heavy bleeding today as well as some cramping. This is patient's third , she is a female. 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 Selby. She's had no testing or any other ultrasounds prior to today for this . She does state she has some tenderness over the left side of her lower abdomen. She reports a cramping pain. Patient denies any recent fever, chills, shortness of breath, chest pain, back pain, nausea vomiting, numbness or tingling, dysuria or hematuria, constipation or diarrhea, headaches or visual changes, or any other current symptoms - Related Data Home Medications Medication Instructions Recorded Confirmed No Known Home Medications 06/19/18 06/19/18 Allergies Allergy/AdvReac Type Severity Reaction Status Date / Time No Known Allergies Allergy Verified 06/19/18 15:50 Review of Systems ROS Statement: Those systems with pertinent positive or pertinent negative responses have been documented in the HPI. ROS Other: All systems not noted in ROS Statement are negative. Past Medical History Past Medical History: No Reported History History of Any Multi-Drug Resistant Organisms: None Reported Past Surgical History: No Surgical Hx Reported Past Anesthesia/Blood Transfusion Reactions: No Reported Reaction Past Psychological History: No Psychological Hx Reported Smoking Status: Current every day smoker Past Alcohol Use History: None Reported Past Drug Use History: None Reported - Past Family History Mother Family Medical History: No Reported History General Exam - General Exam Comments Initial Comments: This is a pleasant 22-year-old female. Alert and oriented. No acute distress. Limitations: no limitations General appearance: alert, in no apparent distress Head exam: Present: atraumatic, normocephalic, normal inspection Eye exam: Present: normal appearance, PERRL, EOMI. Absent: scleral icterus, conjunctival injection, periorbital swelling ENT exam: Present: normal exam, mucous membranes moist Neck exam: Present: normal inspection. Absent: tenderness, meningismus, lymphadenopathy Respiratory exam: Present: normal lung sounds bilaterally. Absent: respiratory distress, wheezes, rales, rhonchi, stridor Cardiovascular Exam: Present: regular rate, normal rhythm, normal heart sounds. Absent: systolic murmur, diastolic murmur, rubs, gallop, clicks GI/Abdominal exam: Present: soft, tenderness (Minimal left lower quadrant tenderness.), normal bowel sounds. Absent: distended, guarding, rebound, rigid External exam: Present: normal external exam Speculum exam: Present: vaginal bleeding (Patient has moderate to heavy vaginal bleeding with clots.). Absent: normal speculum exam By manual exam: Present: normal by manual exam. Absent: cervical motion tenderness, adnexal tenderness Extremities exam: Present: normal inspection, full ROM, normal capillary refill. Absent: tenderness, pedal edema, joint swelling, calf tenderness Back exam: Present: normal inspection Neurological exam: Present: alert, oriented X3, CN II-XII intact Course Vital Signs 06/19/18 06/19/18 15:13 17:54 Temperature 98.4 F 97.6 F Pulse Rate 74 71 Respiratory 20 18 Rate Blood Pressure 123/68 127/67 O2 Sat by Pulse 99 100 Oximetry - Reevaluation(s) Reevaluation #1: 06/19/18 17:46 Discussed the case with Dr. Davidson this time. She recommends repeat beta hCG in 2 days and follow-up with Dr. Selby or the nurse practitioner Yoko in the office. She'll be called on Sunday with the re-drawl values. Medical Decision Making - Medical Decision Making 22-year-old female presents emergency department today with vaginal bleeding for 2 which is approximately 4 weeks . Did have a positive test earlier in the week. She is cramping and pain for the left lower quadrant. Patient hCG levels 456. She is Rh+ blood type. Ultrasound shows evidence of enlargement over the left ovary. No evidence of intrauterine . I discussed the possibility of an ectopic with the Patient. We did call Dr. Davidson who recommends the Patient repeat her hCG level on Sunday and follow-up with their office at that time. Patient was given a prescription for Patient labwork drawn. Discussed return parameters. Discussed Tylenol for pain and cramping. Patient was given a note for work as well. Patient understands treatment plan will comply. Return parameters were discussed. - Lab Data Lab Results 06/19/18 06/19/18 06/19/18 Range/Units 16:02 16:02 16:02 HCG, Quant 456.2 mIU/mL Urine Color Yellow Urine Appearance Clear (Clear) Urine pH 7.0 (5.0-8.0) Ur Specific [place] 1.023 (1.001-1.035) Urine Protein Trace H (Negative) Urine Glucose (UA) Negative (Negative) Urine Ketones Negative (Negative) Urine Blood Large H (Negative) Urine Nitrite Negative (Negative) Urine Bilirubin Negative (Negative) Urine Urobilinogen 3.0 (<2.0) mg/dL Ur Leukocyte Esterase Trace H (Negative) Urine RBC 149 H (0-5) /hpf Urine WBC 1 (0-5) /hpf Ur Squamous Epith Cells 2 (0-4) /hpf Urine Mucus Rare H (None) /hpf Blood Type A Positive Blood Type Recheck No - Radiology Data Radiology results: report reviewed Ultrasound shows free fluid in the cul-de-sac. Normal uterus and endometrium. Mild blurred treatment of the left ovary. Follow-up is recommended. There is normal arterial wave form and the left ovary on the Doppler images. No evidence of an IUP. Disposition Clinical Impression: Threatened miscarriage Disposition: HOME SELF-CARE Condition: Good Instructions: Threatened Miscarriage (ED) Additional Instructions: Patient advised to repeat your blood hormone level in 2 days. Follow -up with Dr. Selby. Return to the emergency department if any alarming signs or symptoms occur. Is patient prescribed a controlled substance at d/c from ED?: No Referrals: None,Stated [Primary Care Provider] - 1-2 days Mario Peterson DO [Doctor of Osteopathic Medicine] - 1-2 days Time of Disposition: 17:46
[2018-06-19 17:57] VITALS: BP 127/67; PULSE 71; RESP 18; TEMP 97.6
== END 2018-06-19 17:57 | disposition home or self-care (01) ==
LOC: EC 14:31
DX: O20.0 Threatened abortion (principal); O99.89 Other specified diseases and conditions complicating pregnancy, childbirth and the puerperium; N83.9 Noninflammatory disorder of ovary, fallopian tube and broad ligament, unspecified; O99.331 Smoking (tobacco) complicating pregnancy, first trimester; F17.200 Nicotine dependence, unspecified, uncomplicated; Z3A.01 Less than 8 weeks gestation of pregnancy
CPT/HCPCS: 36415; 76801; 76817; 81001; 84702; 86900; 86901; 99284

== ENCOUNTER → 2018-06-21 | Outpatient (CLI) | payer OTHER | END | disposition home or self-care (01) | LOC: LABWHC1 13:58 | PROVIDERS: ATTEND Physician Assistant Medical | DX: O20.0 Threatened abortion (principal); Z3A.00 Weeks of gestation of pregnancy not specified | CPT/HCPCS: 36415; 84702 ==

== ENCOUNTER 2018-06-22 21:15 | Emergency (ER) | payer OTHER ==
[2018-06-22 21:23] VITALS: RESP 18; TEMP 98.3
[2018-06-22 21:43] LABS: Basophils % (A) 0 %; Eosinophils % (A) 2 %; HCT 36.7 % (34.0-46.0); HGB 11.9 gm/dL (11.4-16.0); Lymphocytes # (A) 2.1 k/uL (1.0-4.8); Lymphocytes % (A) 28 %; MCHC 32.3 g/dL (31.0-37.0); MCV 89.6 fL (80.0-100.0); Mean Platelet Volume 8.9; Monocytes % (A) 5 %; Neutrophils # (A) 4.7 k/uL (1.3-7.7); Neutrophils % (A) 64 %; Platelet Count 162 k/uL (150-450); RBC 4.09 m/uL (3.80-5.40); RDW 13.9 % (11.5-15.5); WBC 7.4 k/uL (3.8-10.6)
[2018-06-22 21:44] LABS: Eosinophils # (A) 0.1 k/uL (0-0.7); Monocytes # (A) 0.4 k/uL (0-1.0)
[2018-06-22] MEDS ORDERED: ACETAMINOPHEN TAB 325 MG TAB PO STA (21:52)
[2018-06-22 21:55] LABS: Anion Gap 6 mmol/L; Blood Urea Nitrogen 9 mg/dL (7-17); Calcium 9.4 mg/dL (8.4-10.2); Carbon Dioxide 27 mmol/L (22-30); Chloride 109 mmol/L (98-107); Glucose 99 mg/dL (74-99); Potassium 4.1 mmol/L (3.5-5.1); Sodium 142 mmol/L (137-145)
[2018-06-22 22:11] LABS: HCG,Quantitative Serum 366.9 mIU/mL
--- NOTE | 2018-06-22 22:17 | ED ---
Abdominal Pain HPI - General Chief Complaint: Abdominal Pain Stated Complaint: Abd pain Time Seen by Provider: 06/22/18 21:29 Source: patient Mode of arrival: ambulatory Limitations: no limitations - History of Present Illness Initial Comments: This patient is 22-year-old woman who believes that she is approximately 5 weeks by dates. She presents to have reevaluation for left flank pain and for vaginal bleeding. She was seen here Sunday for the same symptoms. She was told that she may be having a threatened miscarriage. She did follow- up with her physician to have repeat lab tests, but states it the clinic was closed. The patient returns here stating that the vaginal bleeding has slowed a little bit but does continue. She has used total of 5 pads today. She has not noted any tissue. Patient states that the flank pain continues. It is constant, cramping she states like labor. she has not noted worsening or relieving factors. Currently the pain is moderate. MD Complaint: flank pain -: days(s) Location: L flank Radiation: none Migration to: no migration Severity: moderate Quality: cramping Consistency: constant Improves With: nothing Worsens With: nothing Associated Symptoms: other (Vaginal bleeding) - Related Data LMP (females 10-50): Patient : Yes Number of weeks : 5 Home Medications Medication Instructions Recorded Confirmed No Known Home Medications 06/19/18 06/22/18 Allergies Allergy/AdvReac Type Severity Reaction Status Date / Time No Known Allergies Allergy Verified 06/22/18 21:23 Review of Systems ROS Statement: Those systems with pertinent positive or pertinent negative responses have been documented in the HPI. ROS Other: All systems not noted in ROS Statement are negative. Constitutional: Denies: fever, chills Respiratory: Denies: cough, dyspnea Cardiovascular: Denies: chest pain, palpitations Gastrointestinal: Reports: abdominal pain. Denies: nausea, vomiting, diarrhea Genitourinary: Reports: abnormal menses. Denies: dysuria, frequency, hematuria Musculoskeletal: Denies: back pain Skin: Denies: rash Neurological: Denies: headache, weakness, numbness Hematological/Lymphatic: Denies: easy bleeding Past Medical History Past Medical History: No Reported History History of Any Multi-Drug Resistant Organisms: None Reported Past Surgical History: No Surgical Hx Reported Past Anesthesia/Blood Transfusion Reactions: No Reported Reaction Past Psychological History: No Psychological Hx Reported Smoking Status: Current every day smoker Past Alcohol Use History: None Reported Past Drug Use History: None Reported - Past Family History Mother Family Medical History: No Reported History General Exam Limitations: no limitations General appearance: alert, in no apparent distress Head exam: Present: atraumatic, normocephalic Eye exam: Present: normal appearance, other (No pallor). Absent: scleral icterus, conjunctival injection ENT exam: Present: normal oropharynx, mucous membranes moist, other (No pallor) Respiratory exam: Present: normal lung sounds bilaterally. Absent: respiratory distress, wheezes, rales, rhonchi, stridor Cardiovascular Exam: Present: regular rate, normal rhythm, normal heart sounds. Absent: systolic murmur, diastolic murmur, rubs, gallop GI/Abdominal exam: Present: soft. Absent: distended, tenderness, guarding, rebound, rigid, mass External exam: Present: normal external exam. Absent: erythema, swelling, lesions, lacerations, ecchymosis Speculum exam: Present: vaginal bleeding (Minimal). Absent: erythema, vaginal discharge, cervical discharge, foreign body, tissue, laceration By manual exam: Present: adnexal tenderness (Left), adnexal mass (Left). Absent : cervical motion tenderness, uterine enlargement, uterine tenderness, other Extremities exam: Present: normal inspection, normal capillary refill. Absent: pedal edema, calf tenderness Back exam: Present: normal inspection. Absent: CVA tenderness (R), CVA tenderness (L) Neurological exam: Present: alert Skin exam: Present: warm, dry, intact, normal color. Absent: rash Course Vital Signs 06/22/18 21:22 Temperature 98.3 F Pulse Rate 73 Respiratory 18 Rate Blood Pressure 101/67 O2 Sat by Pulse 99 Oximetry - Reevaluation(s) Reevaluation #1: 06/23/18 01:24 Case is discussed with Dr. Mcmullen, they will see the patient in clinic in 2 days for serial hCG/ultrasound. Medical Decision Making - Lab Data Result diagrams: 06/22/18 21:35 06/22/18 21:35 Lab Results 06/22/18 06/22/18 Range/Units 21:35 21:35 WBC 7.4 (3.8-10.6) k/uL RBC 4.09 (3.80-5.40) m/uL Hgb 11.9 (11.4-16.0) gm/dL Hct 36.7 (34.0-46.0) % MCV 89.6 (80.0-100.0) fL MCH 29.0 (25.0-35.0) pg MCHC 32.3 (31.0-37.0) g/dL RDW 13.9 (11.5-15.5) % Plt Count 162 (150-450) k/uL Neutrophils % 64 % Lymphocytes % 28 % Monocytes % 5 % Eosinophils % 2 % Basophils % 0 % Neutrophils # 4.7 (1.3-7.7) k/uL Lymphocytes # 2.1 (1.0-4.8) k/uL Monocytes # 0.4 (0-1.0) k/uL Eosinophils # 0.1 (0-0.7) k/uL Basophils # 0.0 (0-0.2) k/uL Sodium 142 (137-145) mmol/L Potassium 4.1 (3.5-5.1) mmol/L Chloride 109 H (98-107) mmol/L Carbon Dioxide 27 (22-30) mmol/L Anion Gap 6 mmol/L BUN 9 (7-17) mg/dL Creatinine 0.62 (0.52-1.04) mg/dL Est GFR (CKD-EPI)AfAm >90 (>60 ml/min/1.73 sqM) Est GFR (CKD-EPI)NonAf >90 (>60 ml/min/1.73 sqM) Glucose 99 (74-99) mg/dL Calcium 9.4 (8.4-10.2) mg/dL HCG, Quant 366.9 mIU/mL Disposition Clinical Impression: Threatened miscarriage Disposition: HOME SELF-CARE Condition: Fair Instructions: Ectopic (DC), Threatened Miscarriage (ED) Is patient prescribed a controlled substance at d/c from ED?: No Referrals: None,Stated [Primary Care Provider] - 1-2 days Mario Peterson DO [Doctor of Osteopathic Medicine] - 1-2 days
--- NOTE | 2018-06-22 23:44 | US ---
EXAMINATION TYPE: Transabdominal DATE OF EXAM: 01/01/18 COMPARISON: NONE CLINICAL HISTORY: Pain. EXAM PERFORMED: Transvaginal (TV) and Transabdominal (TA) EXAM MEASUREMENTS: GESTATIONAL AGE / DATING Physician Established: Not yet established Dates by LMP: LMP unknown Dates by First Scan: No previous this is first scan Dates by Current Scan for: Unable to date by today's study MATERNAL ANATOMY Uterus: Anteverted; 8.6 x 4.4 x 5.1 cm Endometrium: Wnl; 0.4 cm Right Ovary: Appears wnl, flow visualized; 2.8 x 1.8 x 1.5 cm Left Ovary: ?Heterogeneous area in left adnexa unable to distinguish ovarian tissue, flow visualized in periphery Post CDS / Adnexa: Free fluid noted in posterior cul de sac Presence of free fluid: Yes, noted in posterior cul de sac Presence of corpus luteal cyst: No Presence of subchorionic bleed: No GESTATION / SURVEY IUP: No IUP seen at this time Date of LMP: Unknown Beta HcG (if available): 06/22: 366.9 Previously drawn- 06/21: 465.2 06/19: 456.2 IMPRESSION: Normal uterus. No endometrial thickening. No evidence of ovarian torsion. Mild free fluid. No evidence of a gestational sac. Left adnexal compl ex 6 x 4 x 6 cm mass the possibility of ectopic is not excluded.
[2018-06-23] MEDS ORDERED: MORPHINE SULFATE 4 MG/ML SYRINGE IV STA (00:40)
[2018-06-23] MEDS ORDERED: MORPHINE SULFATE 4 MG/ML SYRINGE IM STA (01:00)
[2018-06-23] MEDS ORDERED: ACET/COD 300 MG/30 MG STARTER PACK 6 TAB BTL PO STA (01:41)
[2018-06-23 02:05] VITALS: BP 106/56; PULSE 64
== END 2018-06-23 02:06 | disposition home or self-care (01) ==
LOC: EC 21:15
DX: O20.0 Threatened abortion (principal); O99.331 Smoking (tobacco) complicating pregnancy, first trimester; F17.200 Nicotine dependence, unspecified, uncomplicated; Z3A.01 Less than 8 weeks gestation of pregnancy
CPT/HCPCS: 36415; 80048; 85025; 84702; 93975; 76801; 76817; 99284; 96372; J2270

== ENCOUNTER 2020-07-09 19:34 | Outpatient (CLI) | payer OTHER ==
[2020-07-09 20:25] VITALS: BP 121/67; PULSE 102; RESP 16; TEMP 97.9
--- NOTE | 2020-07-10 07:42 | P.MSEPDOC ---
Presenting Problems - Arrival Data Date of Arrival on Unit: 07/09/20 Time of Arrival on Unit: 19:35 Mode of Transport: Ambulatory Vital Signs - Temperature Temperature: 97.9 F Temperature Source: Temporal Artery Scan - Pulse Right Pulse Rate: 102 Pulse Assessment Method: Pulse Oximetry - Respirations Respiratory Rate: 16 Oxygen Delivery Method: Room Air O2 Sat by Pulse Oximetry: 97 - Blood Pressure Right Arm Blood Pressure: 121/67 Blood Pressure Mean: 85 Blood Pressure Source: Automatic Cuff Medical Screen Scoring (Post) - Cervical Exam Dilation: 0 cm = 0 Membranes: Intact - Uterine Contractions Frequency: < 36 weeks = 6 Duration: > 40 seconds = 2 Intensity: N/A - Maternal Vital Signs Maternal Temperature: N/A Maternal Blood Pressure: N/A Signs of Preeclampsia: N/A Maternal Respirations: N/A - Pain Assessment Pain Location and Character: Abdomen Pain Scale Used: Numeric (1 - 10) Pain Intensity: 3 Pain Management Goal: 3 Pain Description: *Acute Pain Aggravating Factors: Contractions - Maternal Trauma Maternal Trauma: N/A - Assessment - Baby A Heart Rate: 135 Heart Rate - NICHD Category: Category I (Normal) = 0 NST: Reactive Position: N/A Station: N/A - Total Score Total Score - Baby A: 8 Total Score - Baby B: 8 Total Score - Baby C: 8 - Post Treatment Level of Risk Post Treatment Level of Risk - Baby A: Medium (6-9) Post Treatment Level of Risk - Baby B: Medium (6-9) Post Treatment Level of Risk - Baby C: Medium (6-9) Physician Notification (Post) - Physician Notified Physician Notified Date: 07/09/20 Physician Notified Time: 20:10 Physician/Practitioner Notified:: Edilberto Spoke With: Edilberto New Order Received: Yes - Notification Comment Comment: DC patient home and instruct pt to call her physician at [facility] and ask for further instructions. Pt is stable to go home at this time. Disposition - Disposition OB Disposition: Discharge to home Discharge Date: 07/09/20 Discharge Time: 20:20 I agree with the RN Medical Screening Exam: Yes Risk & Benefit of care provided described in d/c instruction: Yes Diagnosis: FALSE LABOR BEFORE 37 COMPLETED WEEKS OF GEST, THIRD TRI (Patient presented to triage with complaints of pain. Patient's care is per Dr. Plummer at [facility]. Patient apparently called her physician and was told to come to [facility]. This physician does not have privileges here however. Patient's obstetrical history is significant for 2 vaginal deliveries both at 40 and 42 weeks. Evaluation here shows her cervix to be closed and thick. Patient is in no distress and no evidence of labor. We advised patient to contact her physician shireen and arrange follow-up in the office on Sunday. Although the patient was informed she is always welcome at this hospital, we reminded her that is in her best interest to go to wear her physician who is providing her with care has privileges.)
== END 2020-07-09 20:20 | disposition home or self-care (01) ==
LOC: FBPOP 19:34
PROVIDERS: ATTEND Obstetrics & Gynecology
DX: O47.1 False labor at or after 37 completed weeks of gestation (principal); Z3A.37 37 weeks gestation of pregnancy
CPT/HCPCS: 59025; G0463; 99213